=== PATIENT | male | born 1995 | race Caucasian/White ===

== ENCOUNTER → 2025-01-14 | Day surgery (SDC) | payer BC ==
[~2025-01-14] MED LIST: Ketamine 500 mg/10 ML MDV IV ONE; Midazolam 1 MG/ML 2 ML SDV IV ONE; Propofol 200 MG/20 ML SDV IV ONE; Sodium Chloride 0.9% 10 ML Syringe FLUSH PRN
[2025-01-14] MEDS: Lactated Ringers 1,000 ML IV SCH (07:36)
== END ==
LOC: FB.SDS 06:31
PROVIDERS: ATTEND Surgery
DX: K64.8 Other hemorrhoids (principal); K62.5 Hemorrhage of anus and rectum; F17.210 Nicotine dependence, cigarettes, uncomplicated; Z79.899 Other long term (current) drug therapy
CPT/HCPCS: 45378; A9270; J2003; J2250; J2704; J3490; J7120; 00812